=== PATIENT | female | born 1940 | race Caucasian/White ===

== ENCOUNTER → 2017-03-21 | Outpatient (CLI) | payer MEDICARE ==
--- NOTE | 2017-03-21 15:51 | MR ---
EXAMINATION TYPE: MR lumbar spine wo con DATE OF EXAM: 03/21/2017 COMPARISON: No prior MRI of the lumbar spine HISTORY: Bilateral back pain with prior lumbar fusion. Radiation to the bilateral lower extremities f or greater than one month. TECHNIQUE: Multiplanar, multisequence images of the lumbar spine were acquired. L1-L2: There is a broad-based disc bulge without neural foraminal narrowing or spinal canal stenosis. L2-L3: There is a large broad-based disc bulge resulting in moderate to severe right neural foraminal narrowing and moderate left neural foraminal narrowing in combination with mild facet arthropathy an d ligamentum flavum buckling. This also creates mild spinal canal stenosis. L3-L4: There is a right lateral disc herniation creating severe right neural foraminal narrowing, sev ere spinal canal stenosis, and no left neural foraminal narrowing. Facet arthropathy and ligamentum f lavum buckling are seen. L4-L5: Pedicular screws and fixation rods are present. There is residual left eccentric broad-based d isc bulge creating mild to moderate left neural foraminal narrowing. Right neuroforamen is patent. Sp inal canal is also patent. L5-S1: Pedicular screws are seen of L5. Central small disc herniation is present at L5-S1 without spi nal canal stenosis. This is superimposed upon a broad-based disc bulge creating mild right neural for aminal narrowing. Left neural foramen and is patent. Degenerative endplate changes are seen although susceptibility artifact from surgical hardware partia lly obscures visualization of the level of L3-S1. T1/T2 hyperintense vertebral body hemangioma seen o f the right lateral margin of S1. At least broad-based disc bulges are present at T10-11 and T11-T12, incompletely characterized without axial imaging. Lumbar segments are intact. No paraspinal masses are identified. Conus medullaris has a normal appearance. IMPRESSION: 1. Right lateral disc herniation at L3-L4 creating severe right neural foraminal narrowing and severe spinal canal stenosis. 2. Multilevel degenerative disc disease creating variable degrees of neural foraminal narrowing throu ghout the lumbar spine and mild spinal canal stenosis at L2-L3. 3. Postsurgical change at L4-S1 with residual left eccentric broad-based disc bulge at L4-L5 creating mild to moderate left neural foraminal narrowing. 4. Small central disc herniation at L5-S1 without resultant spinal canal stenosis or neural foraminal narrowing.
== END | disposition home or self-care (01) ==
LOC: RADMRIMAIN 14:15
PROVIDERS: ATTEND Internal Medicine Hematology & Oncology
DX: M48.06 Spinal stenosis, lumbar region (principal); M99.73 Connective tissue and disc stenosis of intervertebral foramina of lumbar region; M51.27 Other intervertebral disc displacement, lumbosacral region; M51.36 Other intervertebral disc degeneration, lumbar region; C34.82 Malignant neoplasm of overlapping sites of left bronchus and lung
CPT/HCPCS: 72148